=== PATIENT | female | born 1940 | race Caucasian/White ===

== ENCOUNTER → 2019-07-24 12:23 | Outpatient (BNVA) | payer MEDICARE, BC, SELFPAY | PROVIDERS: Family Provider Family Medicine; Referring Provider Family Medicine; Visit Provider Family Medicine | DX: E03.8 Other specified hypothyroidism (principal); E11.9 Type 2 diabetes mellitus without complications; M51.9 Unspecified thoracic, thoracolumbar and lumbosacral intervertebral disc disorder | CPT/HCPCS: 80053; 83036; 84443; 85025 ==

== ENCOUNTER 2019-08-14 10:02 | Outpatient (CLI) | payer MEDICARE, BC, SELFPAY ==
--- NOTE | 2019-08-14 10:08 | XR_ITS ---
WS: [id number] LUMBAR SPINE FLEXION AND EXTENSION TECHNIQUE: 3 views of the lumbar spine: Lateral neutral, flexion, and extension views. CLINICAL INFORMATION: Low back pain COMPARISON: None. FINDINGS: Slight anterolisthesis L4 on L5 measuring 2.4 mm. Mild disc space narrowing throughout the lumbar spi ne. Moderate facet arthropathy L4-L5 and L5-S1. Chronic anterior wedging T11 and T12. Anterolisthesis increases slightly on flexion at L4-L5 measuring 4.5 mm. This decreases on extension to near neutral measuring 1 to 2 mm. XR/XR lumbar spine f/e only [id number] IMPRESSION: Grade 1 anterolisthesis L4 on L5 with mild instability.
--- NOTE | 2019-08-14 10:08 | MR_ITS ---
WS: [id number] MRI LUMBAR SPINE WITH CONTRAST TECHNIQUE: Sagittal T1, T2 and STIR imaging. Axial T1 and T2 imaging. Post gadolinium imaging was obt ained. CLINICAL INFORMATION: Low back pain COMPARISON: MRI November 01, 2017 FINDINGS: Mild lumbar curve convex left. No acute compression. Grade 1 anterolisthesis L4 on L5. Severe central canal stenosis L4-5. Anterior wedging T11-T12. Tarlov cyst in the sacrum. Clumping and peripheral displacement of the cauda equina nerve rootlets at L3 extending distally cons istent with arachnoiditis. This is new from previous. L1-L2: Mild disc bulging. Small left synovial cyst appears involuted and calcified today. Slight impi ngement on the left subarticular recess. Previously described right foraminal extrusion has involuted today. Right foramen appears patent L2-L3: Mild annular bulging. Moderate central canal stenosis. Mild facet arthropathy. Tiny bilateral foraminal protrusions with mild foraminal narrowing, left greater than right. L3-L4: Mild annular bulging with mild to moderate central canal stenosis. Narrowing of the subarticul ar recess bilaterally. Left foraminal protrusion contacts the exiting left L3 nerve root with mild le ft foraminal narrowing. L4-L5: Grade 1 anterolisthesis L4 on L5. Severe central canal stenosis. Moderate facet arthropathy wi th ligament flavum hypertrophy. Foramen are patent. L5-S1: Mild disc bulging with moderate facet arthropathy. Slight effacement of ventral thecal sac. Mi ld left greater than right foraminal narrowing. Visualized pelvic bony structures: Normal. Paravertebral soft tissues: Normal MR/MR lumbar spine wo/w con [id number] IMPRESSION: 1. Severe central canal stenosis L4-5 due to grade 1 anterolisthesis with disc bulging and facet arthropathy. This is unchanged. 2. 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 3. Small left synovial cyst at L1-2 has involuted and appears calcified today. Persistent impingement left subarticular recess is unchanged. 4. Previously described right L1-2 extrusion appears involuted today. Right L1 -2 neural foramen appears patent. 5. Mild to moderate central canal stenosis L2-3 and L3-4.
== END 2019-08-14 10:03 | disposition home or self-care (01) ==
LOC: RADWPI 10:07
PROVIDERS: Family Provider Family Medicine; PCP Family Medicine; Visit Provider Licensed Practical Nurse
DX: M53.2X6 Spinal instabilities, lumbar region (principal); M48.061 Spinal stenosis, lumbar region without neurogenic claudication; M47.816 Spondylosis without myelopathy or radiculopathy, lumbar region; G03.8 Meningitis due to other specified causes; M71.38 Other bursal cyst, other site; M51.26 Other intervertebral disc displacement, lumbar region
CPT/HCPCS: 72120; 72158; A9579

== ENCOUNTER 2019-10-15 08:39 | Outpatient (CLI) | payer MEDICARE, BC, SELFPAY ==
--- NOTE | 2019-10-15 09:00 | IR_ITS ---
WS: [id number] LUMBAR MYELOGRAM HISTORY: Spinal stenosis and radiculopathy. COMPARISON: 08/14/2019. FLUOROSCOPY TIME: 1.4 minutes. Procedure, risks and complications were explained to the patient. Risks including bleeding, infection , headaches, allergic reaction and seizures. Consent has been obtained. With the patient in prone position the skin over the lumbar region is cleansed with ChloraPrep and an esthetized with lidocaine. 22-gauge spinal needle is inserted into the thecal sac at the appropriate level determined by fluoroscopy. Omnipaque 240; 13 ml is injected slowly under fluoroscopy with no co mplications. Needle bevel is perpendicular to the longitudinal fibers of the dura. Stylet is reinsert ed prior to removal of the needle. Patient tolerated the procedure well. Patient will proceed to CT f or further evaluation. Rotoscoliosis with convexity to the LEFT. There is asymmetric disc space narrowing throughout the lum bar spine. LEFT curvature centered at the L3-4 level. Narrowing of the thecal sac with ventral compre ssions at each disc space. L4 anterolisthesis by 5 mm. With flexion and extension there is no signifi cant instability. There is advanced degenerative disc disease and osteophytes at all levels. Moderate atherosclerosis aorta. IR/[place] myel[place] lumbar [id number] IMPRESSION: 1. Degenerative LEFT convex rotoscoliosis lumbar spine. 2. L4 anterolisthesis 5 mm. 3. No instability. 4. Soft tissue encroachment upon the thecal sac at all disc levels from disc o steophyte disease. Most significant at L4-5 where there is at least moderate st enosis. 5. CT report to follow.
[2019-10-15] MEDS: iohexol 240 mg/mL 50 mL Btl INTRATHECA (10:15)
--- NOTE | 2019-10-15 11:30 | CT_ITS ---
WS: [id number] CT MYELOGRAM LUMBAR SPINE HISTORY: lumbar pain TECHNIQUE: Contiguous 2.5 mm axial imaging performed from T12 through the mid sacral level. Bone and soft tissue windows reviewed. Sagittal and coronal reformats are submitted and reviewed. DLP: 1838.[address] scans at [facility] use at least one of these dose optimization techniques: automat ed exposure control; mA and/or kV adjustment per patient size (includes targeted exams where dose is matched to clinical indication); or iterative reconstruction. COMPARISON: MRI 08/14/2019. Very mild LEFT convex rotary scoliosis of the lumbar spine. There is good injection and contrast opac ification of the thecal sac. L4 anterolisthesis by 5 mm. L2 retrolisthesis by 3.7 mm. There are no fr actures. There is marked ligamentum flavum hypertrophy and degenerative disc disease and vacuum disc phenomenon. T12-L1: Diffuse annular disc bulging and osteophytic ridging. Central and LEFT paracentral disc protr usion with mild flattening of the thecal sac. No stenosis. L1-L2: Diffuse annular disc bulging and osteophytic ridging. Mild encroachment upon the central theca l sac and subarticular recesses. No significant stenosis. L2-L3: Diffuse annular disc bulging and osteophytic ridging. Disc is asymmetric to the LEFT. Mild enc roachment upon the central canal and subarticular recesses. Mild central and bilateral subarticular r ecess encroachment. Slightly greater on the LEFT. L3-L4: Moderate annular disc bulging and osteophytic ridging with ligamentum flavum hypertrophy and f acet arthritis. Encroachment upon the ventral thecal sac and subarticular recesses. Clumping of the n erve roots in the thecal sac. Moderate central stenosis with bilateral subarticular recess and LEFT f oraminal stenosis. L4-L5: Severe central and subarticular recess stenosis due to annular disc bulging, L4 anterolisthesi s and marked facet arthritis. Mild bilateral foraminal stenosis, RIGHT greater than LEFT. L5-S1: Broad-based central disc bulging with facet arthritis. Mild effacement of the ventral thecal s ac. Mild bilateral foraminal stenosis LEFT greater than RIGHT. Atherosclerosis aorta. No aneurysm. CT/CT lumbar spine w con [id number] IMPRESSION: 1. Severe central and bilateral subarticular recess stenosis at L4-5 due to co mbination of disc disease, facet arthritis and osteophytes. 2. L4 anterolisthesis, grade 1. Contributes to the significant stenosis at the L4-5 level. 3. Mild central and bilateral subarticular recess stenosis at L2-3. 4. Moderate central and bilateral subarticular recess and LEFT foraminal steno sis at L3-4. 5. 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
== END 2019-10-15 08:40 | disposition home or self-care (01) ==
LOC: RADWPI 08:42
PROVIDERS: Family Provider Family Medicine; PCP Family Medicine; Visit Provider Specialist
DX: M54.5 Low back pain (principal); M48.061 Spinal stenosis, lumbar region without neurogenic claudication; M51.36 Other intervertebral disc degeneration, lumbar region; M25.78 Osteophyte, vertebrae; G03.8 Meningitis due to other specified causes
CPT/HCPCS: 62304; 72120; 72132; Q9966

== ENCOUNTER → 2019-11-09 18:07 | Outpatient (BNVA) | payer MEDICARE, BC, SELFPAY | PROVIDERS: Family Provider Family Medicine; PCP Family Medicine; Visit Provider Nurse Practitioner Family | DX: Z11.59 Encounter for screening for other viral diseases (principal) | CPT/HCPCS: 87635 ==

== ENCOUNTER → 2019-12-04 12:52 | Outpatient (BNVA) | payer MEDICARE, BC, SELFPAY | PROVIDERS: Family Provider Family Medicine; PCP Family Medicine; Visit Provider Family Medicine | DX: J22 Unspecified acute lower respiratory infection (principal) | CPT/HCPCS: 71046 ==

== ENCOUNTER → 2020-01-08 12:09 | Outpatient (BNVA) | payer MEDICARE, BC, SELFPAY | PROVIDERS: Family Provider Family Medicine; PCP Family Medicine; Visit Provider Family Medicine | DX: E11.9 Type 2 diabetes mellitus without complications (principal); E03.8 Other specified hypothyroidism; Z01.818 Encounter for other preprocedural examination; M51.9 Unspecified thoracic, thoracolumbar and lumbosacral intervertebral disc disorder; Z68.26 Body mass index [BMI] 26.0-26.9, adult | CPT/HCPCS: 80053; 83036; 84443; 85025 ==

== ENCOUNTER 2020-01-22 16:01 | Outpatient (CLI) | payer MEDICARE, BC, SELFPAY ==
--- NOTE | 2020-01-22 16:15 | XR_ITS ---
WS: [id number] DEXA (DUAL ENERGY X-RAY ABSORPTIOMETRY) Bone mineral density was performed using a Zen[employer] machine. HISTORY: M81.0 - Age-related osteoporosis without current pathological fracture COMPARISON: 01/21/2014 Lumbar spine BMD (L1-L4): 1.512 g/cm2 T score: 2.8 Z score: 4.5 Total hip BMD: Left: 0.996 g/cm2. T score: -0.1 Z score: 1.8 Right: 0.960 g/cm2. T score: -0.4 Z score: 1.5 10 year probability of a major osteoporotic fracture is 10%. Compared to the prior study from 01/21/2014. Lumbar spine bone mineral density has increased by 3.2%. Bilateral hips bone mineral density has decreased by 3.1%. XR/XR DEXA axial skeleton* [id number] IMPRESSION: NORMAL BONE MINERAL DENSITY based upon the WHO classification for females. Significant increase in bone mineral density in the lumbar spine with a signifi cant decrease in bone mineral density in the hips.
== END 2020-01-22 16:02 | disposition home or self-care (01) ==
LOC: RADWPI 16:06
PROVIDERS: PCP Family Medicine; Visit Provider Family Medicine
DX: M81.0 Age-related osteoporosis without current pathological fracture (principal)
CPT/HCPCS: 77080

== ENCOUNTER 2020-06-16 13:38 | Outpatient (CLI) | payer MEDICARE, BC, SELFPAY ==
--- NOTE | 2020-06-16 13:45 | XRR_ITS ---
PROCEDURE INFORMATION: Exam: XR Lumbosacral Spine Exam date and time: 06/16/2020 2:06 PM Age: 80 years old Clinical indication: Device placement; Lumbar surgery 05/27/20; Prior surgery; Surgery date: <1 month; Additional info: Spinal stenosis TECHNIQUE: Imaging protocol: XR of the lumbosacral spine. Views: 4 or 5 views. COMPARISON: CT lumbar spine w con [id number] 10/15/2019 10:11 AM FINDINGS: Bones/joints: Laminectomy and pedicle screw fixation at the L4-L5 level. Lumbar levoscoliosis and degenerative change. No instability. Intraperitoneal space: Surgical clips in the right upper quadrant. Vasculature: Vascular calcification. XR/XR lumbar spine min 4V [id number] IMPRESSION: Lumbar levoscoliosis and degenerative change.
== END 2020-06-16 13:39 | disposition home or self-care (01) ==
LOC: RAD 13:42
PROVIDERS: PCP Family Medicine; Visit Provider Specialist
DX: M48.062 Spinal stenosis, lumbar region with neurogenic claudication (principal); M41.86 Other forms of scoliosis, lumbar region
CPT/HCPCS: 72110

== ENCOUNTER → 2020-09-22 14:50 | Outpatient (BNVA) | payer MEDICARE, BC, SELFPAY | PROVIDERS: PCP Family Medicine; Visit Provider Family Medicine | DX: E03.8 Other specified hypothyroidism (principal); E11.65 Type 2 diabetes mellitus with hyperglycemia; M51.9 Unspecified thoracic, thoracolumbar and lumbosacral intervertebral disc disorder; M48.062 Spinal stenosis, lumbar region with neurogenic claudication; I10 Essential (primary) hypertension; F32.9 Major depressive disorder, single episode, unspecified | CPT/HCPCS: 80053; 83036; 84443; 85025 ==

== ENCOUNTER → 2020-10-10 15:27 | Outpatient (BNVA) | payer MEDICARE, BC, SELFPAY | PROVIDERS: PCP Family Medicine; Visit Provider Family Medicine | DX: Z20.822 Contact with and (suspected) exposure to COVID-19 (principal) | CPT/HCPCS: 87635 ==

== ENCOUNTER → 2021-01-01 13:13 | Outpatient (BNVA) | payer MEDICARE, BC, SELFPAY | PROVIDERS: PCP Family Medicine; Visit Provider Family Medicine | DX: E03.8 Other specified hypothyroidism (principal); I10 Essential (primary) hypertension; E11.65 Type 2 diabetes mellitus with hyperglycemia | CPT/HCPCS: 80053; 80061; 83036; 84443; 85025 ==

== ENCOUNTER 2021-06-12 08:03 | Outpatient (CLI) | payer MEDICARE, BC, SELFPAY ==
--- NOTE | 2021-06-12 08:04 | FL_ITS ---
WS: [id number] Fluoroscopy, attempted lumbar moderate. During the initial attempt at a lumbar myelogram the patient became weak and diaphoretic and experien rafiq a vasovagal reaction. Patient also became nauseous. Patient requested that study be terminated. W e were unable to continue due to the patient's vasovagal reaction during the evaluation.
[2021-06-12] MEDS: iohexol 240 mg/mL 50 mL Btl INTRATHECA (09:48)
--- NOTE | 2021-06-12 10:00 | CT_ITS ---
WS: [id number] CT LUMBAR SPINE, noncontrast. HISTORY: worsening low back pain s/p L4/L5 laminectomy TECHNIQUE: Contiguous 2.5 mm axial imaging are performed. Sagittal and coronal reformats are submitte d and reviewed. All CT scans at [facility] use at least one of these dose optimization techni ques: automated exposure control; mA and/or kV adjustment per patient size (includes targeted exams w here dose is matched to clinical indication); or iterative reconstruction. IV contrast: None DLP: 1304.90 mGy.cm COMPARISON: 05/05/2021 Moderate LEFT curvature lumbar spine. Prior posterior lumbar fusion at L4-5. Severe disc space narrow ing and desiccation throughout. No fracture. Laminectomy defect at L4-5. L1-2: Mild annular disc bulging encroaching upon the ventral thecal sac. Mild central and bilateral s ubarticular recess stenosis. L2-3: Diffuse asymmetric disc bulging greatest to the RIGHT. Effacement of ventral CSF and ligamentum flavum hypertrophy. Moderate RIGHT foraminal stenosis and mild on the LEFT. Mild central and bilater al subarticular recess stenosis. L3-4: Diffuse annular disc bulging and osteophytic ridging. There is high density contrast within the thecal sac. This was from the attempted myelogram which was aborted due to vasovagal reaction. There is only a very tiny amount of contrast present. Moderate central, bilateral subarticular recess and foraminal stenosis. L4-5: Diffuse annular disc bulging and osteophytic ridging. Marked facet arthritis. No central stenosis. Bilateral moderate subarticular recess and foraminal jigar nosis. Large laminectomy defect posteriorly. L5-S1: Diffuse annular disc bulging with osteophytic ridging. Facet joint arthritis encroaches into t he subarticular recesses. Moderate bilateral subarticular recess stenosis. Prior cholecystectomy. No adrenal mass. Moderate atherosclerotic changes within the aorta. Mild degen erative changes at the SI joints. CT/CT lumbar spine wo con* [id number] IMPRESSION: 1. 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 2. Status post posterior lumbar fusion at L4-5 with laminectomy defects. 3. LEFT scoliosis. 4. Mild central and bilateral foraminal stenosis at L1-2. 5. Moderate RIGHT foraminal stenosis and mild on the LEFT at L2-3 with mild ce ntral and bilateral subarticular recess stenosis. 6. Moderate central, bilateral subarticular recess and foraminal stenosis due to combination of factors. 7. No central stenosis. Moderate bilateral subarticular recess and foraminal s tenosis at L3-4. 8. Moderate bilateral subarticular recess stenosis at L5-S1.
== END 2021-06-12 08:04 | disposition home or self-care (01) ==
LOC: RAD 08:03
PROVIDERS: PCP Family Medicine; Visit Provider Family Medicine
DX: M54.50 Low back pain, unspecified (principal); Z98.1 Arthrodesis status; M41.9 Scoliosis, unspecified; M48.061 Spinal stenosis, lumbar region without neurogenic claudication
CPT/HCPCS: 62304; 72120; 72131; 76000

== ENCOUNTER → 2021-06-18 10:59 | Outpatient (BNVA) | payer MEDICARE, BC, SELFPAY | PROVIDERS: PCP Family Medicine; Referring Provider Family Medicine; Visit Provider Orthopaedic Surgery | DX: M46.96 Unspecified inflammatory spondylopathy, lumbar region (principal) | CPT/HCPCS: 99213; 99214 ==

== ENCOUNTER → 2021-07-16 13:02 | Outpatient (BNVA) | payer MEDICARE, BC, SELFPAY | PROVIDERS: PCP Family Medicine; Visit Provider Family Medicine | DX: I10 Essential (primary) hypertension (principal); E11.65 Type 2 diabetes mellitus with hyperglycemia; E03.8 Other specified hypothyroidism | CPT/HCPCS: 80053; 83036; 84443; 85025 ==

== ENCOUNTER → 2022-01-11 15:44 | Outpatient (BNVA) | payer MEDICARE, BC, SELFPAY | PROVIDERS: PCP Family Medicine; Visit Provider Family Medicine | DX: I10 Essential (primary) hypertension (principal); E03.8 Other specified hypothyroidism; E11.9 Type 2 diabetes mellitus without complications; E11.65 Type 2 diabetes mellitus with hyperglycemia; H61.21 Impacted cerumen, right ear | CPT/HCPCS: 80053; 83036; 84443 ==

== ENCOUNTER → 2022-05-10 15:56 | Outpatient (BNVA) | payer MEDICARE, BC, SELFPAY | PROVIDERS: PCP Family Medicine; Visit Provider Family Medicine | DX: Z00.00 Encounter for general adult medical examination without abnormal findings (principal); I10 Essential (primary) hypertension; E03.8 Other specified hypothyroidism; E11.65 Type 2 diabetes mellitus with hyperglycemia; M48.062 Spinal stenosis, lumbar region with neurogenic claudication | CPT/HCPCS: 80053; 83036; 84443; 85025 ==

== ENCOUNTER 2022-08-09 15:31 | Outpatient (CLI) | payer MEDICARE, BC, SELFPAY ==
--- NOTE | 2022-08-09 15:41 | XR_ITS ---
WS: [id number] EXAMINATION: XR knee LT 3V* [id number] REASON FOR EXAM: increased pain in left knee COMPARISON: None available. ORDER DATE: 08/09/2022 3:46 PM FINDINGS: There are marginal osteophytes associated with the tibial spines, with lateral and patellofemoral com partment narrowing. There is no sign of any acute fracture or specific soft tissue abnormality. Small degree of chondrocalcinosis in the lateral meniscus. XR/XR knee LT 3V* [id number] IMPRESSION: LATERAL AND PATELLOFEMORAL COMPARTMENT NARROWING WITH CHONDROCALCINOSIS AND OST EOARTHRITIS
== END 2022-08-09 15:32 | disposition home or self-care (01) ==
LOC: RAD 15:35
PROVIDERS: PCP Family Medicine; Visit Provider Family Medicine
DX: M17.12 Unilateral primary osteoarthritis, left knee (principal); M11.262 Other chondrocalcinosis, left knee
CPT/HCPCS: 73562

== ENCOUNTER → 2023-01-06 12:16 | Outpatient (BNVA) | payer MEDICARE, BC, SELFPAY | PROVIDERS: PCP Family Medicine; Visit Provider Family Medicine | DX: I10 Essential (primary) hypertension (principal); E11.65 Type 2 diabetes mellitus with hyperglycemia | CPT/HCPCS: 80053; 83036; 84443; 85025 ==

== ENCOUNTER → 2023-05-26 12:51 | Outpatient (BNVA) | payer MEDICARE, BC, SELFPAY | PROVIDERS: PCP Family Medicine; Visit Provider Family Medicine | DX: I10 Essential (primary) hypertension (principal); E11.65 Type 2 diabetes mellitus with hyperglycemia; F51.01 Primary insomnia | CPT/HCPCS: 80048 ==

== ENCOUNTER → 2024-01-11 13:42 | Outpatient (BNVA) | payer MEDICARE, BC, SELFPAY | PROVIDERS: PCP Family Medicine; Visit Provider Family Medicine | DX: I10 Essential (primary) hypertension (principal); E11.65 Type 2 diabetes mellitus with hyperglycemia; E03.8 Other specified hypothyroidism | CPT/HCPCS: 80053; 83036; 84443; 85025 ==

== ENCOUNTER → 2024-11-19 14:53 | Outpatient (BNVA) | payer MEDICARE, BC, SELFPAY | PROVIDERS: PCP Family Medicine; Visit Provider Family Medicine | DX: I10 Essential (primary) hypertension (principal); E11.65 Type 2 diabetes mellitus with hyperglycemia; E03.8 Other specified hypothyroidism | CPT/HCPCS: 80053; 83036; 84443; 85025 ==